=== PATIENT | female | born 1990 | race Caucasian/White ===

== ENCOUNTER 2016-09-21 07:26 | Emergency (ER) | payer MEDICAID ==
[~2016-09-21] VITALS: Ht 157.5 cm; Wt 50.3 kg
[2016-09-21 07:33] VITALS: BP 100/64
--- NOTE | 2016-09-21 07:37 | NUR ---
Patient ambulated to bed 7 with family. QUALITY ASSURANCE ANALYST evaluating patient at bedside.
--- NOTE | 2016-09-21 07:38 | NUR ---
Dr. Gaines evaluating patient at bedside.
[2016-09-21] MEDS ORDERED: LIDOCAINE 1% ED 50 ML ONE (07:43)
--- NOTE | 2016-09-21 07:44 | NUR ---
25/F c/o left ear pain since this morning. Pt states "I feel like something is in my ear." Pt states she went to [facility] but they told her the wait was 4 hours so she left and came here. AOX4, ambulatory with steady gait. No other complaints at this time. VSS.
--- NOTE | 2016-09-21 07:46 | NUR ---
Dr. Gaines re-evaluating patient at bedside.
--- NOTE | 2016-09-21 07:50 | NUR ---
Left ear irrigated with 500 ml of normal saline. Insect noted removed from ear by irrigation. Dr. Eder zuluaga.
[2016-09-21 08:31] VITALS: BP 100/64
--- NOTE | 2016-09-21 08:32 | NUR ---
Patient discharged with v/s stable. Written and verbal after care instructions given and explained. Patient alert, oriented and verbalized understanding of instructions. Ambulatory with steady gait. All questions addressed prior to discharge. ID band removed. Patient advised to follow up with PMD. Rx of MOTRIN AND CORTICOSPORIN EAR DROPS given. Patient educated on indication of medication including possible reaction and side effects. Opportunity to ask questions provided and answered.
== END 2016-09-21 08:32 | disposition home or self-care (01) ==
LOC: MED 07:26
DX: T16.2XXA Foreign body in left ear, initial encounter (principal); X58.XXXA Exposure to other specified factors, initial encounter; Y93.89 Activity, other specified; Y92.89 Other specified places as the place of occurrence of the external cause; Y99.8 Other external cause status
CPT/HCPCS: 69200; 99284; J2001

== ENCOUNTER 2020-06-22 08:56 | Emergency (ER) | payer MEDICAID ==
[~2020-06-22] VITALS: Ht 157.5 cm; Wt 51.3 kg
[2020-06-22 09:01] VITALS: BP 102/60
--- NOTE | 2020-06-22 09:10 | NUR ---
DR. PAGE AT BEDSIDE EVALUATING PATIENT.
[2020-06-22] MEDS ORDERED: LIDOCAINE MPF 1% 10 MG/ML VIAL INJ ONE (09:15)
--- NOTE | 2020-06-22 09:15 | NUR ---
29 Y/O FEMALE COMING FROM HOME WITH C/C LACERATION TO LEFT ANTERIOR THIGH. PT STATES SHE ACCIDENTLY CUT HERSELF WITH A BLADE WHILE CUTTING A PIECE OF PLASTIC. PT STATES PAIN 3/10. 1" LACERATION NOTED TO HER LEFT ANTERIOR THIGH. BLEEDING CONTROLLED PRIOR TO ARRIVAL. PT STATES NO OTHER COMPLAINTS AT THIS TIME. PT DENIES FEVER/CHILLS, DIZZINESS, HEADACHE, SOB, CHEST PAIN, COLD-LIKE SYMPTOMS. VSS. LUNG SOUNDS CTA, RESPIRATIONS EVEN/UNLABORED. BED LOCKED IN LOWEST POSITION, SIDE RAILS X 1, CALL LIGHT IN REACH. PMH/MEDS: DENIES NKA
[2020-06-22] MEDS ORDERED: LIDOCAINE MPF 1% 5 ML ONE (09:28)
--- NOTE | 2020-06-22 10:05 | NUR ---
DR. PAGE AT BEDSIDE REEVALUATING PATIENT.
--- NOTE | 2020-06-22 10:10 | NUR ---
PATIENT SITTING UPRIGHT IN BED, BOTH EYES AWAKE. EQUAL CHEST RISE AND FALL. RESIPRATIONS EVEN/UNLABORED. BED LOCKED IN LOWEST POSITION, SIDE RAILS X 1, CALL LIGHT IN REACH.
[2020-06-22 10:21] VITALS: BP 116/72
--- NOTE | 2020-06-22 10:21 | NUR ---
Patient discharged with v/s stable. Written and verbal after care instructions given and explained. Patient verbalized understanding. Ambulatory with steady gait. All questions addressed prior to discharge. Advised to follow up with PMD.
== END 2020-06-22 10:21 | disposition home or self-care (01) ==
LOC: MED 08:56
DX: S71.112A Laceration without foreign body, left thigh, initial encounter (principal); W26.8XXA Contact with other sharp object(s), not elsewhere classified, initial encounter; Y93.89 Activity, other specified; Y92.89 Other specified places as the place of occurrence of the external cause; Y99.8 Other external cause status
CPT/HCPCS: 12001; 90471; 90715; 99283; J2001

== ENCOUNTER 2020-07-04 09:22 | Emergency (ER) | payer MEDICAID ==
[~2020-07-04] VITALS: Ht 157.5 cm; Wt 51.7 kg
[2020-07-04 09:26] VITALS: BP 107/72
[2020-07-04 09:56] VITALS: BP 107/72
== END 2020-07-04 09:56 | disposition home or self-care (01) ==
LOC: MED 09:22
DX: S71.112D Laceration without foreign body, left thigh, subsequent encounter (principal); X58.XXXA Exposure to other specified factors, initial encounter
CPT/HCPCS: 99281

== ENCOUNTER 2023-05-10 21:04 | Emergency (ER) | payer MEDICAID ==
[~2023-05-10] VITALS: Ht 157.5 cm; Wt 54.4 kg
[2023-05-10 21:05] VITALS: BP 107/68; PULSE 72; RESP 17; TEMP 97.9; O2SAT 100
[2023-05-10] MEDS ORDERED: ONDANSETRON 4 MG ODT PO ONE (21:25)
[2023-05-10] MEDS ORDERED: ACETAMINOPHEN EXTRA STRENGTH 500 MG TAB PO ONE (21:25)
[2023-05-10] MEDS ORDERED: OXYM15SP72 NS (22:52)
[2023-05-10] MEDS ORDERED: AMOX1TAB8 PO (22:52)
== END 2023-05-10 23:39 | disposition home or self-care (01) ==
LOC: MED 21:04
DX: J32.9 Chronic sinusitis, unspecified (principal); B34.9 Viral infection, unspecified; Z79.899 Other long term (current) drug therapy; Z79.2 Long term (current) use of antibiotics
CPT/HCPCS: 71045; 99283; Q0162